=== PATIENT | male | born 1935 | race Caucasian/White ===

== ENCOUNTER 2019-10-08 09:01 | Day surgery (SDC) | payer OTHER ==
[2019-10-08 09:09] LABS: Absolute Lymphocytes (CBC) 1.3 K/uL (0.7-4.9); Basophils % 1.2 % (0-1.3); Hematocrit 34.9 % (39.6-49.0); Lymphocytes % 21.5 % (15.3-44.8); MPV 7.8 fL (7.6-11.3); RBC Red Blood Cell Count 4.25 M/uL (4.33-5.43)
[2019-10-08 09:21] LABS: Potassium 4.1 mmol/L (3.5-5.1)
[2019-10-08] MEDS ORDERED: CEFAZOLIN/SWI 1gm 1 GM/10 ML SYR ONE (09:52)
[2019-10-08] MEDS ORDERED: NA CHLORIDE 0.9% 1,000 ML ONE (09:52)
--- NOTE | 2019-10-08 10:08 | RAD REPORT ---
EXAM DESCRIPTION: RAD - Chest Pa And Lat (2 Views) - 10/08/2019 9:21 am CLINICAL HISTORY: preop, left arm soft tissue wound treatment COMPARISON: No comparisons TECHNIQUE: Frontal and lateral views of the chest were obtained. FINDINGS: The lungs are clear of an acute infiltrate. No suspicious mass identified. A few prominent vessels are seen on end in the central chest. Heart size is normal and central vasculature is with in normal limits. No pleural effusion or pneumothorax seen. No acute bony finding noted. No aortic abnormality. IMPRESSION: No acute cardiopulmonary process.
[2019-10-08] MEDS ORDERED: LIDOCAINE 2% MPF 5 ML VIAL ONE (10:50)
[2019-10-08] MEDS ORDERED: FENTANYL CITR 100 MCG/2 ML ONE (10:50)
[2019-10-08] MEDS ORDERED: propofoL 200 MG/20 ML VIAL IV ONE ×3 (10:50→11:19)
--- NOTE | 2019-10-08 13:23 | EKG ---
Test Date: 2019-10-08 Test Time: 08:48:03 Attorney: ELLEN MEASUREMENT RESULTS: Intervals: Rate: 59 [place]: 212 QRSD: 140 QT: 466 QTc: 461 [place]: P: 67 [place]: 212 QRS: -27 T: -9 INTERPRETIVE STATEMENTS: Sinus bradycardia with 1st degree AV block Right bundle branch block Abnormal ECG Compared to ECG 03/02/2014 11:21:15 First degree AV block now present Right bundle-branch block now present Sinus rhythm no longer present Left ventricular hypertrophy no longer present ST (T wave) deviation no longer present Electronically Signed On 10-08-19 13:21:01 SOLAR ENERGY SALES SPECIALIST by Elia Ndiaye
[2019-10-08 13:49] VITALS: BP 119/60; TEMP 97.3; O2SAT 96
--- NOTE | 2019-10-09 00:17 | OP ---
Date of Procedure: 10/08/2019 Surgeon: Danilo Camacho MD Preoperative Diagnosis: Right axillary mass x2. Postoperative Diagnosis: Right axillary mass x2. Procedures: Wide excision, right axillary mass x3, 4 x 2 cm each with layered closure. Estimated Blood Loss: Minimal. Specimens: Right axillary mass x3 and culture and sensitivity. Findings: As above. Anesthesia: MAC. Complications: None. Patient tolerated the procedure in stable condition, taken to Recovery in good general condition. Procedure In Detail: Patient was brought to the OR and placed in supine position. General anesthesi a began, patient was prepped and draped in the sterile fashion. Marcaine 0.5% was infiltrated locall y. A 15 blade was used to lift the skin 4 x 2 cm x3 over each of the inflamed masses, which were geronimo roximately 1 cm in diameter and they were red and raised. Culture was taken from the second wound wi th minimal oozing noted. All 3 areas were excised and sent to Pathology. Wound irrigated, bleeding controlled with cautery. 3-0 chromic used to approximate the subcutaneous tissue and 4-0 nylon was u sed to loosely close the skin. Sterile dressing applied. Patient was awakened and taken to Recovery in good general condition. Disposition: Home. Condition: Stable. Discharge Instructions: Resume home medications and diet. Activity as tolerated. No heavy lifting. Remove outer dressing in 2 days. Shower. Keep wound clean and dry. Follow up in my office in 10 days. Call for appointment. Tylenol No. 3 one tablet p.o. q.4 p.r.n. pain and Cipro 500 mg p.o. q.1 2. /MODL Voice ID: [id number] Report ID: [id number]
--- NOTE | 2019-10-11 06:42 | EKG ---
Test Date: 2019-10-08 Test Time: 11:45:34 Kidney Trimmer: ELLEN MEASUREMENT RESULTS: Intervals: Rate: 94 [place]: 126 QRSD: 90 QT: 368 QTc: 460 [place]: P: 46 [place]: 126 QRS: 69 T: 27 INTERPRETIVE STATEMENTS: Normal sinus rhythm Normal ECG Compared to ECG 10/08/2019 08:48:03 Sinus bradycardia no longer present First degree AV block no longer present Right bundle-branch block no longer present Electronically Signed On 10-11-19 06:41:32 DRUG REGULATORY AFFAIRS SPECIALIST by Herrera Gill
== END 2019-10-08 13:20 | disposition home health service (06) ==
LOC: OR 09:01
PROVIDERS: ATTEND Surgery
PROC: 0JBD0ZZ Excision of Right Upper Arm Subcutaneous Tissue and Fascia, Open Approach (ICD-10-PCS; 2019-10-08)
PROC: 0XQ4XZZ Repair Right Axilla, External Approach (ICD-10-PCS; principal; 2019-10-08 11:30)
DX: L72.0 Epidermal cyst (principal)
CPT/HCPCS: 36415; 71046; 80048; 82947; 85025; 87070; 87205; 88304; 93005; J0690; J2704; J3010; J7030

== ENCOUNTER 2022-01-29 15:22 | Emergency (ER) | payer OTHER ==
[2022-01-29 16:21] LABS: Absolute Lymphocytes (CBC) 0.7 K/uL (0.7-4.9); Hematocrit 39.7 % (39.6-49.0); MPV 7.4 fL (7.6-11.3)
[2022-01-29 16:32] LABS: Protime INR 1.05
[2022-01-29 16:39] LABS: Potassium 3.4 mmol/L (3.5-5.1)
--- NOTE | 2022-01-29 16:52 | RAD REPORT ---
EXAM DESCRIPTION: RAD - Knee Left 3 View - 01/29/2022 4:34 pm CLINICAL HISTORY: Pain COMPARISON: No comparisons FINDINGS: No fracture, dislocation or periosteal reaction.Large joint effusion is present. Numerous calcifications are seen within or along the margins of the joint space. Numerous intra-articular calc ified loose bodies suspected. Medial compartment narrowing seen with degenerative marginal spurring. Patella femoral joint space narrowing with patella marginal spurring noted. No soft tissue abnormalit y. Arterial tree calcifications are present. 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 No acute bone finding. Clinical concerns for internal derangement or occult bony injury could be further assessed with MR im aging.
[2022-01-29] MEDS ORDERED: ONDANSETRON 4 MG/2 ML VIAL ONE (17:26)
[2022-01-29] MEDS ORDERED: MORPHINE 2 MG/ML SYR ONE (17:26)
[2022-01-29] MEDS ORDERED: LIDOCAINE 1% 20 ML MDV ONE (17:36)
[2022-01-29 18:21] LABS: Appearance TURBID (CLEAR); Body Fluid Source SYNOVIAL; Body Fluid WBC 11388 /mm^3; Color of fluid Red (COLORLESS)
--- NOTE | 2022-01-29 18:42 | ER ---
Nurse's Notes [facility] Name: Tristan Graham Age: 86 yrs Sex: Male : 1935 Arrival Date: 01/29/2022 Time: 15:32 Bed 13 Private MD: Diagnosis: Effusion, left knee;Inflammatory arthritis left knee Presentation: 01/29 15:32 Chief complaint: EMS states: Family report pt falling and injuring knees. Pt does not ld1 remember falling. Denies injury. Reporting ESTEFANÍA knee pain. Coronavirus screen: At this time, the client does not indicate any symptoms associated with coronavirus-19. Ebola Screen: No symptoms or risks identified at this time. Initial Sepsis Screen: Does the patient meet any 2 criteria? No. Patient's initial sepsis screen is negative. Does the patient have a suspected source of infection? No. Patient's initial sepsis screen is negative. Risk Assessment: Do you want to hurt yourself or someone else? Patient reports no desire to harm self or others. Onset of symptoms was January 29, 2022. 15:32 Method Of Arrival: EMS: [facility] ld1 15:32 Acuity: FITZ 3 ss Triage Assessment: 15:33 General: Appears in no apparent distress. comfortable, Behavior is calm, cooperative, ld1 appropriate for age. Pain: Complains of pain in right knee and left knee Pain does not radiate. Pain currently is 7 out of 10 on a pain scale. Quality of pain is described as throbbing. EENT: No signs and/or symptoms were reported regarding the EENT system. Neuro: Whyte Agitation-Sedation Scale (RASS): 0 - Alert and Calm Level of Consciousness is awake, alert, obeys commands, Oriented to person, place, time, situation. Cardiovascular: Capillary refill < 3 seconds Patient's skin is warm and dry. Respiratory: Airway is patent Respiratory effort is even, unlabored. GI: Abdomen is flat, non-distended. : No signs and/or symptoms were reported regarding the genitourinary system. Derm: No signs and/or symptoms reported regarding the dermatologic system. Musculoskeletal: Reports pain in right leg and left leg. Historical: - Allergies: 15:33 No Known Allergies; ld1 - PMHx: 15:33 Hypertensive disorder; Hypothyroidism; Hypercholesterolemia; ld1 - Immunization history:: Adult Immunizations up to date, Client reports receiving the 2nd dose of the Covid vaccine. - Social history:: Smoking status: Patient denies any tobacco usage or history of. Patient uses alcohol, occasionally. - Family history:: not pertinent. - Hospitalizations: : No recent hospitalization is reported. Screenin:35 Abuse screen: Denies threats or abuse. Denies injuries from another. Nutritional ld1 screening: No deficits noted. Tuberculosis screening: No symptoms or risk factors identified. Fall Risk None identified. Assessment: 15:35 Reassessment: see triage assessment. ld1 17:12 Reassessment: Patient appears in no apparent distress at this time. Patient and/or ld1 family updated on plan of care and expected duration. Pain level reassessed. 17:35 Reassessment: Dr. Terrazas at bedside performing care. ld1 19:09 Reassessment: Patient appears in no apparent distress at this time. Patient and/or ld1 family updated on plan of care and expected duration. Pain level reassessed. Patient is alert, oriented x 3, equal unlabored respirations, skin warm/dry/pink. Patient states feeling better. Vital Signs: 15:32 BP 149 / 61; Pulse 77; Resp 18; Temp 98.6(TE); Pulse Ox 98% on R/A; Weight 77.11 kg; ld1 Height 6 ft. 1 in. (185.42 cm); Pain 7/10; 17:12 BP 150 / 72; Pulse 81; Resp 18; Pulse Ox 99% on R/A; ld1 17:35 BP 125 / 56; Pulse 75; Resp 18; Pulse Ox 99% on R/A; ld1 19:09 BP 167 / 78; Pulse 72; Resp 18; Pulse Ox 100% on R/A; ld1 15:32 Body Mass Index 22.43 (77.11 kg, 185.42 cm) ld1 ED Course: 15:32 Patient arrived in ED. ds1 15:32 Laurie Pelayo, JACKY is Primary Nurse. ld1 15:33 Triage completed. ld1 15:33 Arm band placed on right wrist. ld1 15:35 Patient has correct armband on for positive identification. Placed in gown. Bed in low ld1 position. Call light in reach. Side rails up X2. wire mesh gate assembler on. Pulse ox on. NIBP on. Door closed. Noise minimized. Warm blanket given. 15:35 No provider procedures requiring assistance completed. ld1 15:36 Abad Terrazas MD is Attending Physician. rn 16:14 Inserted saline lock: 20 gauge in right antecubital area, using aseptic technique. ld1 Blood collected. 16:35 XRAY Knee LEFT 3 view In Process Unspecified. EDMS 18:41 Donovan Jones MD is Referral Physician. rn 19:10 IV discontinued, intact, bleeding controlled, No redness/swelling at site. ld1 Administered Medications: No medications were administered Outcome: 18:41 Discharge ordered by MD. rn 19:10 Discharged to home ambulatory, with family. ld1 19:10 Condition: stable 19:10 Discharge instructions given to patient, family, Instructed on discharge instructions, follow up and referral plans. medication usage, Demonstrated understanding of instructions, follow-up care, medications, Prescriptions given X 1. 19:15 Patient left the ED. ld1 Signatures: Dispatcher [employer] [facility] Lula Canela ds1 Abad Terrazas MD MD rn Smirch, Shelby, RN RN ss Laurie Pelayo RN RN ld1 Corrections: (The following items were deleted from the chart) 15:41 15:32 Acuity: FITZ 4 ld1 ss
--- NOTE | 2022-01-29 18:42 | EDPHYS ---
Physician Documentation [facility] Name: Tristan Graham Age: 86 yrs Sex: Male : 1935 Arrival Date: 01/29/2022 Time: 15:32 Bed 13 Private MD: ED Physician Abad Terrazas HPI: 01/29 16:03 This 86 yrs old Unknown Male presents to ER via EMS with complaints of Knee pain. rn 16:03 The patient presents with pain, that is acute, swelling. The complaints affect the left rn knee. Onset: The symptoms/episode began/occurred 2 day(s) ago. Modifying factors: The symptoms are alleviated by nothing. the symptoms are aggravated by movement, weight bearing. Associated signs and symptoms: Pertinent positives: swelling, Pertinent negatives fever, rash, weakness. Severity of symptoms: At their worst the symptoms were moderate, in the emergency department the symptoms are unchanged. The patient has not experienced similar symptoms in the past. The patient has not recently seen a physician. Pt reports left knee pain for 2 days, does not recall obvious injury. Reports was standing up and transferring to nearby chair, when knee began to hurt. Did not fall. No direct trauma. States thinks "may have" twisted it. No hx of gout. NO fever/chills. . Historical: - Allergies: 15:33 No Known Allergies; ld1 - PMHx: 15:33 Hypertensive disorder; Hypothyroidism; Hypercholesterolemia; ld1 - Immunization history:: Adult Immunizations up to date, Client reports receiving the 2nd dose of the Covid vaccine. - Social history:: Smoking status: Patient denies any tobacco usage or history of. Patient uses alcohol, occasionally. - Family history:: not pertinent. - Hospitalizations: : No recent hospitalization is reported. ROS: 16:03 Constitutional: Negative for fever, chills, and weight loss, Eyes: Negative for injury, rn pain, redness, and discharge, Neck: Negative for injury, pain, and swelling, Cardiovascular: Negative for chest pain, palpitations, and edema, Respiratory: Negative for shortness of breath, cough, wheezing, and pleuritic chest pain, Abdomen/GI: Negative for abdominal pain, nausea, vomiting, diarrhea, and constipation, Back: Negative for injury and pain, MS/Extremity: + left knee swelling and pain Skin: Negative for injury, rash, and discoloration, Neuro: Negative for headache, weakness, numbness, tingling, and seizure. Exam: 16:03 Constitutional: This is a well developed, well nourished patient who is awake, alert, rn and in no acute distress. Head/Face: Normocephalic, atraumatic. Cardiovascular: Regular rate and rhythm. No pulse deficits. Respiratory: No increased work of breathing, no retractions or nasal flaring. Abdomen/GI: Soft, non-tender Skin: Warm, dry with normal turgor. Normal color with no rashes, no lesions, and no evidence of cellulitis. MS/ Extremity: Pulses equal, no cyanosis. + near full passive ROM, + swelling to left knee, more prominent medially and superiorly. NO open wounds or rash. Neuro: Awake and alert, GCS 15 Vital Signs: 15:32 BP 149 / 61; Pulse 77; Resp 18; Temp 98.6(TE); Pulse Ox 98% on R/A; Weight 77.11 kg; ld1 Height 6 ft. 1 in. (185.42 cm); Pain 7/10; 17:12 BP 150 / 72; Pulse 81; Resp 18; Pulse Ox 99% on R/A; ld1 17:35 BP 125 / 56; Pulse 75; Resp 18; Pulse Ox 99% on R/A; ld1 19:09 BP 167 / 78; Pulse 72; Resp 18; Pulse Ox 100% on R/A; ld1 15:32 Body Mass Index 22.43 (77.11 kg, 185.42 cm) ld1 Procedures: 17:42 Joint Treatment: Aspiration of left knee using 22g spinal needle. Removed 4 ml's of rn yellow fluid, bloody fluid, Specimen sent to lab. Dressed with band aid, Patient tolerated well. MDM: 15:36 Patient medically screened. rn 18:18 Differential diagnosis: strain, joint effusion, septic arthritis, inflammatory rn arthritis, Gout. Data reviewed: vital signs, nurses notes, lab test result(s), radiologic studies, plain films. ED course: Pt without clear etiology of swollen and painful unilateral knee, CRP elevated, consented patient for knee aspiration to rule out septic knee given reports recent toe infection. Aspiration performed and sent to lab.. 18:39 Counseling: I had a detailed discussion with the patient and/or guardian regarding: the rn historical points, exam findings, and any diagnostic results supporting the discharge/admit diagnosis, lab results, radiology results, the need for outpatient follow up, to return to the emergency department if symptoms worsen or persist or if there are any questions or concerns that arise at home. Response to treatment: the patient's symptoms have mildly improved after treatment, and as a result, I will discharge patient. Special discussion: I discussed with the patient/guardian in detail that at this point there is no indication for admission to the hospital. It is understood, however, that if the symptoms persist or worsen the patient needs to return immediately for re-evaluation. ED course: Knee fluid in inflammatory range, RBC>WBC, gram stain no organisms. No elevation in WBC, afebrile, and sed rate normal, in combination with fluid analysis, not likely septic arthritis, more in favor of inflammatory arthritis. Will dc home with return precautions, pain meds, and ortho f/u.. 01/29 15:42 Order name: CBC with Diff; Complete Time: 17:02 01/29 15:42 Order name: Basic Metabolic Panel; Complete Time: 16:43 rn 01/29 15:42 Order name: Blood Culture Adult (2) rn 01/29 15:42 Order name: Procalcitonin; Complete Time: 17:20 rn 01/29 15:42 Order name: ESR; Complete Time: 17:02 rn 01/29 15:42 Order name: CRP; Complete Time: 16:43 rn 01/29 15:42 Order name: IV Start; Complete Time: 16:14 rn 01/29 15:42 Order name: XRAY Knee LEFT 3 view; Complete Time: 17:02 rn 01/29 15:42 Order name: Protime (+inr); Complete Time: 16:43 rn 01/29 15:42 Order name: Ptt, Activated; Complete Time: 16:43 rn 01/29 17:42 Order name: Body Fluid Culture; Complete Time: 18:39 rn 01/29 17:42 Order name: Fluid Cell Count,Body rn 01/29 17:42 Order name: Fluid Crystals; Complete Time: 18:22 rn Administered Medications: No medications were administered Disposition Summary: 01/29/22 18:41 Discharge Ordered Location: Home rn Problem: new rn Symptoms: have improved rn Condition: Stable rn Diagnosis - Effusion, left knee rn - Inflammatory arthritis left knee rn Followup: rn - With: Donovan Jones MD - When: 2 - 3 days - Reason: Recheck today's complaints, Re-evaluation by your physician Discharge Instructions: - Discharge Summary Sheet rn - Arthritis rn - Knee Effusion rn - Knee Arthrocentesis rn Forms: - Medication Reconciliation Form rn - Thank You Letter rn - Antibiotic cad intern - Prescription Opioid Use rn Prescriptions: - Tramadol 50 mg Oral Tablet - take 1 tablet by ORAL route every 8 hours as needed; 12 tablet; Refills: 0, rn Product Selection Permitted Signatures: Dispatcher [employer] Abad Jaramillo MD MD rn Dibbern, Lauren, RN RN ld1
[2022-01-29 20:05] VITALS: TEMP 98.6
[2022-01-29 20:08] VITALS: BP 167/78; O2SAT 100
== END 2022-01-29 19:15 | disposition home or self-care (01) ==
LOC: ER 15:22
PROC: 0S9D3ZX Drainage of Left Knee Joint, Percutaneous Approach, Diagnostic (ICD-10-PCS; principal; 2022-01-29)
DX: M25.462 Effusion, left knee (principal); M13.862 Other specified arthritis, left knee; I10 Essential (primary) hypertension
CPT/HCPCS: 87040 ×2; 87070; 85025; 80048; 36415; 89050; 85610; 85730; 85652; 89060; 84145; 86140; 73562; 10021; J2270; J2405; 99284

== ENCOUNTER 2022-05-31 11:10 | Day surgery (SDC) | payer OTHER ==
[2022-05-31] MEDS ORDERED: CEFAZOLIN SODIUM 1 GM/VIAL ONE (11:52)
[2022-05-31] MEDS ORDERED: NA CHLORIDE 0.9% 1,000 ML ONE (11:52)
[2022-05-31 12:02] LABS: SARS-CoV-2 Antigen Rapid Res Negative (Negative)
[2022-05-31 12:37] LABS: Potassium 3.3 mmol/L (3.5-5.1)
[2022-05-31] MEDS ORDERED: LIDOCAINE 1% MPF 5 ML VIAL ONE (13:24)
[2022-05-31] MEDS ORDERED: propofoL 200 MG/20 ML VIAL IV ONE (13:24)
[2022-05-31] MEDS ORDERED: FENTANYL CITR 100 MCG/2 ML ONE (13:24)
[2022-05-31] MEDS ORDERED: BUPIVACAINE 0.25% PF 10 ML VIAL ONE ×2 (13:24→14:12)
[2022-05-31] MEDS ORDERED: BUPIVACAINE 0.25% PF 10 ML VIAL SQ ONE (14:00)
[2022-05-31] MEDS ORDERED: SODIUM HYPOCHLORITE 0.25% 473 ML ONE (14:12)
--- NOTE | 2022-05-31 14:17 | P.OP ---
Preoperative diagnosis: LEFT dorsal forearm infected cyst Postoperative diagnosis: LEFT dorsal forearm infected cyst Primary procedure: Excisional Debridement of LEFT dorsal forearm infected cyst Anesthesia: MAC + Local Estimated blood loss: <10cc Specimen: skin with cyst Findings: LEFT dorsal forearm infected cyst ~4cm x 2cm Complications: None Transferred to: Recovery Room Condition: Good
[2022-05-31 15:39] VITALS: TEMP 97.6
[2022-05-31 15:44] VITALS: BP 130/60; O2SAT 99
--- NOTE | 2022-06-01 07:21 | EKG ---
Test Date: 2022-05-31 Test Time: 11:33:25 House Calls Nurse Practitioner: VIANNEY MEASUREMENT RESULTS: Intervals: Rate: 64 [place]: 204 QRSD: 138 QT: 468 QTc: 482 [place]: P: 40 [place]: 204 QRS: -42 T: -26 INTERPRETIVE STATEMENTS: Normal sinus rhythm Left axis deviation Right bundle branch block Minimal voltage criteria for LVH, may be normal variant T wave abnormality, consider lateral ischemia Abnormal ECG Compared to ECG 10/08/2019 11:45:34 Left-axis deviation now present Right bundle-branch block now present Left ventricular hypertrophy now present T-wave abnormality now present Possible ischemia now present Electronically Signed On 06-01-22 07:18:44 CDT by Elia Ndiaye
--- NOTE | 2022-06-01 20:06 | OP ---
Date of Procedure: 05/31/2022 Surgeon: Saroj Morris MD, Preoperative Diagnosis: Left dorsal forearm infected cyst. Postoperative Diagnosis: Left dorsal forearm infected cyst. Procedure Performed: Excisional debridement of left dorsal forearm infected cyst. Anesthesia: MAC plus local. Estimated Blood Loss: Less than 10 cc. Specimen: Skin with cyst. Findings: Left dorsal forearm infected skin cyst approximately 4 cm x 2 cm. Complications: None. Disposition: The patient was transferred to recovery room in good condition. Procedure In Detail: After informed consent was obtained, the patient was brought to the operating r oom, prepped and draped in the usual sterile fashion. After adequate anesthesia was achieved, an are a of the left dorsal forearm was demarcated with a marking pen in an elliptical fashion around an are a of a large infected cyst, which appeared to be sebaceous in nature. I went and dissected down thro ugh the skin and subcutaneous tissues using a 15 blade circumferentially around for approximately 4 x 2 cm. I used electrocautery to remove the tissue down to the fascia overlying the muscle, which is the deep aspect of the extension of the cyst. After this was removed and sent off for pathologic exa mination, the area was copiously irrigated. I then undermined the skin to allow for a tension-free c losure. I then reclosed the skin in an interrupted fashion using interrupted 2-0 nylon suture and a sterile dressing placed over top. The patient tolerated the procedure well without evidence of compl ication and transferred to PACU in good condition. All counts were correct at the end of the case. JOSETTE/RAMAN Voice ID: [id number] Report ID: [id number]
== END 2022-05-31 15:30 | disposition home or self-care (01) ==
LOC: OR 11:10
PROVIDERS: ATTEND Surgery
PROC: 0JBH0ZZ Excision of Left Lower Arm Subcutaneous Tissue and Fascia, Open Approach (ICD-10-PCS; principal; 2022-05-31 11:15)
DX: L72.9 Follicular cyst of the skin and subcutaneous tissue, unspecified (principal); L08.9 Local infection of the skin and subcutaneous tissue, unspecified; Z20.822 Contact with and (suspected) exposure to COVID-19
CPT/HCPCS: 93005; 80048; 36415; 88304; 87811; 11042; J2704; J3010; J7030; J0690; J2001